=== PATIENT | female | born 1980 | race Caucasian/White ===

== ENCOUNTER 2018-03-25 13:10 | Outpatient (CLI) | payer OTHER | END 2018-03-25 13:11 | disposition home or self-care (01) | LOC: BICMAMMO 13:10 | PROVIDERS: ATTEND Family Medicine | DX: Z12.31 Encounter for screening mammogram for malignant neoplasm of breast (principal); N63.20 Unspecified lump in the left breast, unspecified quadrant | CPT/HCPCS: 77066; G0279 ==

== ENCOUNTER 2019-01-26 08:18 | Outpatient (CLI) | payer OTHER ==
--- NOTE | 2019-01-26 08:41 | RAD ---
Sacrum/coccyx 3 views HISTORY: Sacral injury. FINDINGS: Sacral alae are intact. Sacroiliac joints unremarkable. Approximately 50% anterior subluxat ion of the lower coccygeal fragments is noted on the lateral view and is a common finding. No acute osseous abnormalities are reliably demonstrated.
== END 2019-01-26 08:19 | disposition home or self-care (01) ==
LOC: BICRAD 08:18
PROVIDERS: ATTEND Chiropractor
DX: Z03.89 Encounter for observation for other suspected diseases and conditions ruled out (principal)
CPT/HCPCS: 72220

== ENCOUNTER 2020-12-30 15:26 | Outpatient (CLI) | payer OTHER | END 2020-12-30 15:27 | disposition home or self-care (01) | LOC: BICMAMMO 15:26 | PROVIDERS: ATTEND Family Medicine | DX: Z12.31 Encounter for screening mammogram for malignant neoplasm of breast (principal); Z80.3 Family history of malignant neoplasm of breast | CPT/HCPCS: 77063; 77067 ==